=== PATIENT | female | born 2000 | race African-American/Black ===

== ENCOUNTER 2020-02-23 20:02 | Emergency (ER) | payer OTHER ==
[~2020-02-23] VITALS: Ht 157.5 cm; Wt 64.0 kg
[2020-02-23 20:23] VITALS: BP 140/72
[2020-02-23 20:27] LABS: BILIRUBIN,URINE NEGATIVE (NEG); CLARITY,URINE CLEAR; COLOR,URINE YELLOW; NITRITE,URINE NEGATIVE (NEG); PH,URINE 6.5 (<5.0-8.0); PROTEIN,URINE NEGATIVE (NEG-TRACE)
[2020-02-23 20:34] LABS: BACTERIA,URINE FEW /HPF (0-FEW); RBC,URINE 0 /HPF (0-2); SQUAMOUS EPITHELIAL CELL,UR FEW /LPF; WBC,URINE 0 /HPF (0-4)
--- NOTE | 2020-02-23 20:39 | PHYS DOC ---
Past Medical History Past Medical History: No Pertinent History Past Surgical History: Smoking Status: Never Smoker Alcohol Use: None General Adult EDM: Chief Complaint: SEXUALLY TRANSMITTED DISEASE HPI: HPI: Patient is a 19 year old FEMALE who presents with states she had unprotected sex and thinks that she has contracted a sexually transmitted disease. She states that she has some burning with urination and yellow discharge. She states this started about a week ago. She states she does not have any vaginal itching. She denies urinary frequency, abdominal pain, nausea, vomiting, diarrhea, fever, back pain, headache, dizziness, cough. Patient currently has no pain. She is denying any past medical history. Review of Systems: Review of Systems: Constitutional: Denies fever or chills. [] Eyes: Denies change in visual acuity. [] HENT: Denies nasal congestion or sore throat. [] Respiratory: Denies cough or shortness of breath. [] Cardiovascular: Denies chest pain or edema. [] GI: Denies abdominal pain, nausea, vomiting, bloody stools or diarrhea. [] : Denies dysuria. Burning with urination and vaginal discharge. [] Musculoskeletal: Denies back pain or joint pain. [] Integument: Denies rash. [] Neurologic: Denies headache, focal weakness or sensory changes. [] Endocrine: Denies polyuria or polydipsia. [] Lymphatic: Denies swollen glands. [] Psychiatric: Denies depression or anxiety. [] Heart Score: Risk Factors: Risk Factors: DM, Current or recent (<one month) smoker, HTN, HLP, family history of CAD, obesity. Risk Scores: Score 0 - 3: 2.5% MACE over next 6 weeks - Discharge Home Score 4 - 6: 20.3% MACE over next 6 weeks - Admit for Clinical Observation Score 7 - 10: 72.7% MACE over next 6 weeks - Early Invasive Strategies Physical Exam: PE: Constitutional: Well developed, well nourished, no acute distress, non-toxic appearance. [] HENT: Normocephalic, atraumatic, bilateral external ears normal, oropharynx moist, no oral exudates, nose normal. [] Eyes: PERRLA, EOMI, conjunctiva normal, no discharge. [] Neck: Normal range of motion, no tenderness, supple, no stridor. [] Cardiovascular:Heart rate regular rhythm, no murmur [] Lungs & Thorax: Bilateral breath sounds clear to auscultation [] Abdomen: Bowel sounds normal, soft, no tenderness, no masses, no pulsatile masses. [] Skin: Warm, dry, no erythema, no rash. [] Back: No tenderness, no CVA tenderness. [] Extremities: No tenderness, no cyanosis, no clubbing, ROM intact, no edema. [] Neurologic: Alert and oriented X 3, normal motor function, normal sensory function, no focal deficits noted. [] Psychologic: Affect normal, judgement normal, mood normal. Normal physical exam [] Current Patient Data: Labs: Laboratory Tests Test 02/23/20 20:24 POC Urine HCG, Qualitative Hcg negative (Negative) Vital Signs: Vital Signs Date Time Temp Pulse Resp B/P (MAP) Pulse Ox O2 Delivery O2 Flow Rate FiO2 02/23/20 20:23 98.6 93 16 140/72 (94) 93 Room Air 98.6 EKG: EKG: [] Radiology/Procedures: Radiology/Procedures: [] Course & Med Decision Making: Course & Med Decision Making Pertinent Labs and Imaging studies reviewed. (See chart for details) Abdomen soft and nontender. Alert and oriented x4. Ambulatory with a steady gait. Speaks in full complete sentences. See HPI. Skin pink warm and dry. A febrile. Pelvic Exam: Water Treatment Plant Mechanic present Abdomen: Nontender External Genitalia: Normal Skin Speculum: Normal vaginal mucosa, White cervical discharge Bimanual: No adnexal masses or tenderness, No CMT [] Dragon Disclaimer: Dragon Disclaimer: This electronic medical record was generated, in whole or in part, using a voice recognition dictation system. Departure Departure Impression: Primary Impression: Sexually transmitted disease exposure Additional Impression: Bacterial vaginosis Disposition: 01 HOME, SELF-CARE Condition: STABLE Referrals: NO PCP (PCP) PEDRO RIVERA Jr, MD Patient Instructions: Bacterial Vaginosis, Sexually Transmitted Disease Additional Instructions: Follow-up with staff psychologist as needed. Scripts Metronidazole (METRONIDAZOLE) 500 Mg Tablet 1 TAB PO BID for 7 Days, #14 TAB 0 Refills Prov: ORLANDO ROSA APRN 02/23/20 Justicifation of Admission Dx: Justifications for Admission: Justification of Admission Dx: N/A ORLANDO ROSA APRN Feb 23, 2020 20:39
[2020-02-23] MEDS ORDERED: ONDANSETRON ODT 4 MG TAB.RAPDIS. PO ONE (20:45)
[2020-02-23] MEDS ORDERED: cefTRIAXone IM 250 MG VIAL IM ONE (20:45)
[2020-02-23] MEDS ORDERED: AZITHROMYCIN 250 MG TABLET. PO ONE (20:45)
[2020-02-23] MEDS ORDERED: METR-34 PO (21:00)
[2020-02-26 00:09] LABS: GC PROBE Negative (Negative)
== END 2020-02-23 21:06 | disposition home or self-care (01) ==
LOC: ER 20:02
DX: N76.0 Acute vaginitis (principal); R30.9 Painful micturition, unspecified; Z98.890 Other specified postprocedural states; Z20.2 Contact with and (suspected) exposure to infections with a predominantly sexual mode of transmission
CPT/HCPCS: 81001; 81025; 87491; 87591; 96372; 99284; J0696; Q0111

== ENCOUNTER 2020-10-27 17:36 | Emergency (ER) | payer OTHER ==
[~2020-10-27] VITALS: Ht 157.5 cm; Wt 78.0 kg
[~2020-10-27 17:36] MED LIST: METR-34 PO
[2020-10-27 19:18] LABS: BILIRUBIN,URINE NEGATIVE (NEG); CLARITY,URINE CLOUDY; COLOR,URINE YELLOW; NITRITE,URINE NEGATIVE (NEG); PH,URINE 6.5 (<5.0-8.0); PROTEIN,URINE 100 mg/dL (NEG-TRACE)
[2020-10-27 19:25] LABS: U PREG PATIENT NEGATIVE (NEG)
[2020-10-27 19:26] LABS: BACTERIA,URINE MANY /HPF (0-FEW)
[2020-10-27 19:27] LABS: RBC,URINE 20-40 /HPF (0-2)
[2020-10-27 19:28] LABS: WBC,URINE >40 /HPF (0-4)
[2020-10-27] MEDS ORDERED: NITR100C62 PO (19:43)
[2020-10-27] MEDS ORDERED: PHEN100T82 PO (19:43)
--- NOTE | 2020-10-27 19:44 | PHYS DOC ---
Past Medical History Past Medical History: No Pertinent History (ORLANDO ROSA MANAGER TRANSFUSION) Past Surgical History: (ORLANDO ROSA MANAGER TRANSFUSION) Smoking Status: Never Smoker Alcohol Use: None (ORLANDO ROSA APRN) General Adult EDM: Chief Complaint: PAIN ON URINATION HPI: HPI: Patient is a 20 year old female who presents with for the last 4 days she has had lower abdominal burning and spasms so she with urination. She states it feels like a UTI that she had the past. She states Macrobid usually takes care of it. She denies abnormal vaginal discharge or foul smell, concern for sexually transmitted disease, fever, back pain, blood in her urine, nausea, vomiting. She states it hurts mostly upon urinating and after urinating. She rates her pain a 4 out of 10 at this time. (ORLANDO ROSA MANAGER TRANSFUSION) Review of Systems: Review of Systems: Constitutional: Denies fever or chills. [] Eyes: Denies change in visual acuity. [] HENT: Denies nasal congestion or sore throat. [] Respiratory: Denies cough or shortness of breath. [] Cardiovascular: Denies chest pain or edema. [] GI: + Lower abdominal pain, denies nausea, vomiting, bloody stools or diarrhea. [] : + dysuria. [] Musculoskeletal: Denies back pain or joint pain. [] Integument: Denies rash. [] Neurologic: Denies headache, focal weakness or sensory changes. [] Endocrine: Denies polyuria or polydipsia. [] Lymphatic: Denies swollen glands. [] Psychiatric: Denies depression or anxiety. [] (ORLANDO ROSA MANAGER TRANSFUSION) Heart Score: C/O Chest Pain: No Risk Factors: Risk Factors: DM, Current or recent (<one month) smoker, HTN, HLP, family history of CAD, obesity. Risk Scores: Score 0 - 3: 2.5% MACE over next 6 weeks - Discharge Home Score 4 - 6: 20.3% MACE over next 6 weeks - Admit for Clinical Observation Score 7 - 10: 72.7% MACE over next 6 weeks - Early Invasive Strategies (ORLANDO ROSA MANAGER TRANSFUSION) Allergies: Allergies: Allergies Coded Allergies Type Severity Reaction Last Updated Verified No Known Drug Allergies 02/23/20 No [facility] Physical Exam: PE: Constitutional: Well developed, well nourished, no acute distress, non-toxic appearance. [] HENT: Normocephalic, atraumatic, bilateral external ears normal, oropharynx moist, no oral exudates, nose normal. [] Eyes: PERRLA, EOMI, conjunctiva normal, no discharge. [] Neck: Normal range of motion, no tenderness, supple, no stridor. [] Cardiovascular:Heart rate regular rhythm, no murmur [] Lungs & Thorax: Bilateral breath sounds clear to auscultation [] Abdomen: Bowel sounds normal, soft, no tenderness, no masses, no pulsatile masses. [] Skin: Warm, dry, no erythema, no rash. [] Back: No tenderness, no CVA tenderness. [] Extremities: No tenderness, no cyanosis, no clubbing, ROM intact, no edema. [] Neurologic: Alert and oriented X 3, normal motor function, normal sensory function, no focal deficits noted. [] Psychologic: Affect normal, judgement normal, mood normal. Normal physical exam [] [facility] Current Patient Data: Labs: Laboratory Tests Test 10/27/20 17:40 Urine Collection Type Unknown Urine Color Yellow Urine Clarity Cloudy Urine pH 6.5 (<5.0-8.0) Urine Specific [place] >=1.030 (1.000-1.030) Urine Protein 100 mg/dL (NEG-TRACE) Urine Glucose (UA) Negative mg/dL (NEG) Urine Ketones (Stick) Negative mg/dL (NEG) Urine Blood Large (NEG) Urine Nitrite Negative (NEG) Urine Bilirubin Negative (NEG) Urine Urobilinogen Dipstick 1.0 mg/dL (0.2 mg/dL) Urine Leukocyte Esterase Large (NEG) Urine RBC 20-40 /HPF (0-2) Urine WBC >40 /HPF (0-4) Urine Squamous Epithelial Cells Mod /LPF Urine Bacteria Many /HPF (0-FEW) Urine Mucus Slight /LPF Urine Test Negative (NEG) Vital Signs: Vital Signs Date Time Temp Pulse Resp B/P (MAP) Pulse Ox O2 Delivery O2 Flow Rate FiO2 10/27/20 17:40 98.9 90 16 163/85 (111) 98 Room Air 98.9 (ORLANDO ROSA APRN) EKG: EKG: [] (ORLANDO ROSA APRN) Radiology/Procedures: Radiology/Procedures: [] (ORLANDO ROSA APRN) Course & Med Decision Making: Course & Med Decision Making Pertinent Labs and Imaging studies reviewed. (See chart for details) See HPI. Alert and oriented x4. Ambulatory with steady gait. Skin pink warm and dry. Vital signs within normal limits. Afebrile. Abdomen is soft and nontender. Urinalysis shows infection. I will send off her urine for chlamydia and gonorrhea and patient states that is okay but she has no concerns at this time. [] (ORLANDO ROSA APRN) Dragon Disclaimer: Dragon Disclaimer: This electronic medical record was generated, in whole or in part, using a voice recognition dictation system. (ORLANDO ROSA APRN) Departure Departure Impression: Primary Impression: Urinary tract infection Qualified Codes: N39.0 - Urinary tract infection, site not specified; R31.9 - Hematuria, unspecified Disposition: HOME SELF CARE/HOMELESS Condition: STABLE Referrals: NON,STAFF (PCP) Patient Instructions: Urinary Tract Infection Additional Instructions: Follow-up with your primary care provider soon as possible. The chlamydia gonorrhea results will come back in 48 hours. You will only be called if something comes back positive. Take your medication as prescribed and with food. Scripts Phenazopyridine Hcl (PYRIDIUM) 100 Mg Tablet 1 TAB PO TID for urinary discomfort for 2 Days, #6 TAB 0 Refills Prov: ORLANDO ROSA APRN 10/27/20 Nitrofurantoin Monohyd/M-Cryst (MACROBID 100 MG CAPSULE) 100 Mg Capsule 1 CAP PO BID for 10 Days, #20 CAP 0 Refills Prov: OLRANDO ROSA APRN 10/27/20 Attending Signature Attending Signature I have reviewed the PA/FUEL STORAGE TECHNICIAN's note and plan of care. I was available for consultation as needed during the patient's visit in the emergency department. I agree with the clinical impression, plan, and disposition. (JOHAN CERDA DO) ORLANDO ROSA APRN Oct 27, 2020 19:44 JOHAN CERDA DO Oct 28, 2020 01:31
[2020-10-27 20:30] VITALS: BP 116/72
[2020-10-27] MEDS: NITROFURANTOIN MONOHYD/M-CRYST 100 MG CAPSULE. PO ONE (20:44)
== END 2020-10-27 20:34 | disposition home or self-care (01) ==
LOC: ER 17:36
DX: N39.0 Urinary tract infection, site not specified (principal); R31.9 Hematuria, unspecified; R25.2 Cramp and spasm; R10.30 Lower abdominal pain, unspecified; Z98.890 Other specified postprocedural states
CPT/HCPCS: 81001; 81025; 87086; 99285

== ENCOUNTER 2021-01-09 09:31 | Emergency (ER) | payer OTHER ==
[~2021-01-09] VITALS: Ht 157.5 cm; Wt 77.2 kg
[~2021-01-09 09:31] MED LIST changes: +NITR100C62 PO; +PHEN100T82 PO
--- NOTE | 2021-01-09 09:53 | ED.ADGEN ---
Past Medical History Past Medical History: No Pertinent History Past Surgical History: Smoking Status: Never Smoker Alcohol Use: None General Adult EDM: Chief Complaint: VOMITING IN HPI: HPI: Patient is a 20 year old AA female who presents emergency department with complaints of nausea and vomiting for the last 24 hours. Patient reports she has not been able to keep anything down. She has vomited at least 10 times in the last 24 hours. Patient states she is currently , 4, para 2, with 1 previous miscarriage at about 4 weeks gestation. Patient states her last menstrual cycle was on November 08, 2020, her due date is August 15, 2021. Patient states her CHIEF RESERVOIR ENGINEERING is at . She denies any irregular vaginal discharge, vaginal bleeding, back pain, fever, cough, shortness of breath, diarrhea, dysuria, hematuria, or increased urinary frequency. Patient states that she has had some lower abdominal cramping that she currently rates a 4 out of 10 on the pain scale, she denies any alleviating or exacerbating factors. She currently rates her discomfort a 4 out of 10 on the pain scale, she denies any alleviating or exacerbating factors. Review of Systems: Review of Systems: Complete ROS is negative unless otherwise noted in HPI. Current Medications: Current Medications Medications (Trade) Dose Ordered Sig/Nancy Start Time Stop Time Status Last Admin Dose Admin Ondansetron HCl (Zofran) 4 mg 1X ONCE 01/09/21 10:00 01/09/21 10:04 DC 01/09/21 10:08 4 MG Potassium Chloride (Klor-Con) 40 meq 1X ONCE 01/09/21 10:45 01/09/21 10:46 DC 01/09/21 10:56 40 MEQ Sodium Chloride 1,000 ml @ 1,000 mls/hr 1X ONCE 01/09/21 10:00 01/09/21 10:59 DC 01/09/21 10:08 1,000 MLS/HR Allergies: Allergies: Allergies Coded Allergies Type Severity Reaction Last Updated Verified No Known Drug Allergies 02/23/20 No Physical Exam: PE: See Above Constitutional: Well developed, well nourished, no acute distress, non-toxic appearance. [] HENT: Normocephalic, atraumatic, bilateral external ears normal, nose normal. [] Eyes: PERRLA, EOMI, conjunctiva normal, no discharge. [] Neck: Normal range of motion, no stridor. [] Cardiovascular:Heart rate regular rhythm Lungs & Thorax: Respirations even and unlabored, no retractions, no respiratory distress Abdomen: soft, no tenderness Skin: Warm, dry, no erythema, no rash. [] Extremities: No cyanosis, ROM intact, no edema. [] Neurologic: Alert and oriented X 3, normal motor, normal sensory, no focal deficits noted. [] Psychologic: Affect normal, judgement normal, mood normal. [] Current Patient Data: Labs: Laboratory Tests Test 01/09/21 09:37 01/09/21 09:45 01/09/21 09:46 Urine Collection Type Void Urine Color Anel Urine Clarity Clear Urine pH 6.0 (<5.0-8.0) Urine Specific [place] >=1.030 (1.000-1.030) Urine Protein Negative mg/dL (NEG-TRACE) Urine Glucose (UA) Negative mg/dL (NEG) Urine Ketones (Stick) Trace mg/dL (NEG) Urine Blood Negative (NEG) Urine Nitrite Negative (NEG) Urine Bilirubin Negative (NEG) Urine Urobilinogen Dipstick 1.0 mg/dL (0.2 mg/dL) Urine Leukocyte Esterase Trace (NEG) Urine RBC Occ /HPF (0-2) Urine WBC 1-4 /HPF (0-4) Urine Squamous Epithelial Cells Many /LPF Urine Bacteria 0 /HPF (0-FEW) Urine Mucus Marked /LPF POC Urine HCG, Qualitative Hcg positive (Negative) White Blood Count 10.7 x10^3/uL (4.0-11.0) Red Blood Count 4.84 x10^6/uL (3.50-5.40) Hemoglobin 14.2 g/dL (12.0-15.5) Hematocrit 41.5 % (36.0-47.0) Mean Corpuscular Volume 86 fL (79-100) Mean Corpuscular Hemoglobin 29 pg (25-35) Mean Corpuscular Hemoglobin Concent 34 g/dL (31-37) Red Cell Distribution Width 12.1 % (11.5-14.5) Platelet Count 392 x10^3/uL (140-400) Neutrophils (%) (Auto) 69 % (31-73) Lymphocytes (%) (Auto) 22 % (24-48) L Monocytes (%) (Auto) 9 % (0-9) Eosinophils (%) (Auto) 1 % (0-3) Basophils (%) (Auto) 1 % (0-3) Neutrophils # (Auto) 7.3 x10^3/uL (1.8-7.7) Lymphocytes # (Auto) 2.3 x10^3/uL (1.0-4.8) Monocytes # (Auto) 0.9 x10^3/uL (0.0-1.1) Eosinophils # (Auto) 0.1 x10^3/uL (0.0-0.7) Basophils # (Auto) 0.1 x10^3/uL (0.0-0.2) Maternal Serum HCG Beta Subunit 697139 mIU/mL (0-5) H Sodium Level 139 mmol/L (136-145) Potassium Level 3.4 mmol/L (3.5-5.1) L Chloride Level 101 mmol/L (98-107) Carbon Dioxide Level 26 mmol/L (21-32) Anion Gap 12 (6-14) Blood Urea Nitrogen 10 mg/dL (7-20) Creatinine 0.7 mg/dL (0.6-1.0) Estimated GFR (Cockcroft-Gault) 127.8 Glucose Level 79 mg/dL (70-99) Calcium Level 9.4 mg/dL (8.5-10.1) Laboratory Tests 01/09/21 09:46 Laboratory Tests 01/09/21 09:46 Vital Signs: Vital Signs Date Time Temp Pulse Resp B/P (MAP) Pulse Ox O2 Delivery O2 Flow Rate FiO2 01/09/21 11:42 72 116/71 (86) 100 Room Air 01/09/21 09:36 97.3 17 97.3 EKG: EKG: [] Heart Score: C/O Chest Pain: No Radiology/Procedures: Radiology/Procedures: Ultrasound revealed the following impression: 1. Single intrauterine gestation measuring 8 weeks 3 days by crown-rump length. heart rate 163 bpm. [] 2. No yolk sac is visualized, of unclear etiology. Ongoing follow-up is recommended to demonstrate expected growth and viability. Course & Med Decision Making: Course & Med Decision Making Pertinent Labs and Imaging studies reviewed. (See chart for details) [id number] a call from Dr. Warren regarding the patient's ultrasound. He recommends close follow-up as the yolk sac was not visualized, the fetus measured 8 weeks 3 days and the heart rate was 163. Patient is a 20-year-old female presents emergency department with complaints of not being able to keep anything down for 24 hours. Her CBC is unremarkable, CMP revealed a potassium of 3.4, the patient was given 40 mEq potassium p.o. in the ER, she also received a liter of normal saline, and 4 mg of Zofran. Patient was tolerating p.o. fluids after these medications. Vital signs were stable. I advised the patient of her ultrasound report and encouraged her to follow-up with her CHIEF RESERVOIR ENGINEERING this week for further evaluation and close follow-up. Return to the ER symptoms worsen or fever develop. Patient verbalized an understanding of home care, medications, follow-up, and return to ED instructions and was in agreement with the plan of care. [] Dragon Disclaimer: Dragon Disclaimer: This electronic medical record was generated, in whole or in part, using a voice recognition dictation system. Departure Departure Impression: Primary Impression: Hyperemesis of Additional Impression: Hypokalemia Disposition: HOME / SELF CARE / HOMELESS Condition: STABLE Referrals: NON,STAFF (PCP) Patient Instructions: Diet - Hyperemesis Gravidarum, Hyperemesis Gravidarum Additional Instructions: Fill the prescription and use as directed. Follow the diet instructions provided. Follow up with your OBGyn this week, tell them you were evaluated in the ER today. Return to the ER if symptoms worsen or fever develops. Scripts Ondansetron (ONDANSETRON ODT) 4 Mg Tab.rapdis 1 TAB PO PRN Q6-8HRS PRN for NAUSEA/VOMITING for 3 Days, #12 TAB 0 Refills Prov: JEY HOLDER APRN 01/09/21 Problem Qualifiers JEY HOLDER APRN Jan 09, 2021 09:53
[2021-01-09] MEDS ORDERED: ONDANSETRON PF 4 MG/2 ML VIAL. IV ONE (10:00)
[2021-01-09] MEDS ORDERED: IV NORMAL SALINE 1000ML BAG 1,000 ML IV ONE (10:00)
[2021-01-09 10:12] LABS: BASO # 0.1 x10^3/uL (0.0-0.2); BASO % 1 % (0-3); EOS # 0.1 x10^3/uL (0.0-0.7); EOS % 1 % (0-3); HEMATOCRIT 41.5 % (36.0-47.0); HEMOGLOBIN 14.2 g/dL (12.0-15.5); LYMPH # 2.3 x10^3/uL (1.0-4.8); LYMPH % 22 % (24-48); MEAN CORPUSCULAR HEMOGLOBIN 29 pg (25-35); MEAN CORPUSCULAR HGB CONC 34 g/dL (31-37); MEAN CORPUSCULAR VOLUME 86 fL (79-100); MONO # 0.9 x10^3/uL (0.0-1.1); MONO % 9 % (0-9); NEUT # 7.3 x10^3/uL (1.8-7.7); NEUT % 69 % (31-73); PLATELET COUNT 392 x10^3/uL (140-400); RED BLOOD COUNT 4.84 x10^6/uL (3.50-5.40); RED CELL DISTRIBUTION WIDTH 12.1 % (11.5-14.5); WHITE BLOOD COUNT 10.7 x10^3/uL (4.0-11.0)
[2021-01-09 10:14] LABS: BILIRUBIN,URINE NEGATIVE (NEG); CLARITY,URINE CLEAR; COLOR,URINE AMBER; NITRITE,URINE NEGATIVE (NEG); PROTEIN,URINE NEGATIVE (NEG-TRACE)
[2021-01-09 10:29] LABS: CALCIUM 9.4 mg/dL (8.5-10.1); CREATININE 0.7 mg/dL (0.6-1.0); GFR 127.8; POTASSIUM 3.4 mmol/L (3.5-5.1)
[2021-01-09 10:31] LABS: BACTERIA,URINE 0 /HPF (0-FEW); RBC,URINE OCC /HPF (0-2)
[2021-01-09] MEDS ORDERED: POTASSIUM CHLORIDE 20 MEQ TABLET.ER. PO ONE (10:45)
[2021-01-09 12:12] VITALS: BP 112/64
[2021-01-09] MEDS ORDERED: ONDA4TAB12 PO (12:32)
--- NOTE | 2021-01-09 13:43 | RAD ---
EXAM: OBSTETRIC ULTRASOUND, <14 WEEKS. HISTORY: Vaginal bleeding in . COMPARISON: None. FINDINGS: Sonographic evaluation of the pelvis was performed transabdominally and transvaginally. The uterus is anteverted and measures 14 x 9 x 6 cm. There is a single intrauterine gestation measuri ng 8 weeks 3 days. heart rate is 163 bpm. A yolk sac is not visualized currently. The gestation al sac is regular, but appears somewhat large for gestational age. There is no subchorionic collectio n. The right ovary measures 5.0 x 3.1 x 3.1 cm. The left ovary measures 3.4 x 1.9 x 1.6 cm. There is nor mal Doppler flow bilaterally. There is no adnexal mass. There is no significant free fluid. The cervi x is closed and measures 4.6 cm. IMPRESSION: 1. Single intrauterine gestation measuring 8 weeks 3 days by crown-rump length. heart rate 163 bpm. 2. No yolk sac is visualized, of unclear etiology. Ongoing follow-up is recommended to demonstrate ex pected growth and viability. These findings were called to Laura Alston by Maxi Warren on 01/09/2021 at 10:58 AM. Electronically signed by: Tuan Warren MD (01/09/2021 10:58 AM) [id number]
== END 2021-01-09 12:25 | disposition home or self-care (01) ==
LOC: ER 09:31
DX: O26.91 Pregnancy related conditions, unspecified, first trimester (principal); E87.6 Hypokalemia; Z3A.01 Less than 8 weeks gestation of pregnancy
CPT/HCPCS: 36415; 76801; 80048; 81001; 81025; 84702; 85025; 87086; 96361; 96374; 99285; J2405; J7030